=== PATIENT | female | born 1995 | race Caucasian/White ===

== ENCOUNTER 2016-09-18 08:30 | Outpatient (CLI) | payer OTHER ==
[~2016-09-18 08:30] MED LIST: ADDERALL XR15 MG PO; CIPRO500 MG PO; DEPAKOTE ER (E500 M1 PO; DUONEB 2.5-0.5 M3 ML IPPB; ESKALITH300 M1 PO; FIBER TABS625 MG PO; FLUOXETINE HCL20 MG PO; INTUNIV2 MG PO; JOLESSA1 EACH PO; KEFLEX500 MG PO; LACTAID1 TABLET PO; LITHIUM CARBON300 M1 PO; LITHIUM CARBON300 MG PO; LITHIUM CARBON600 MG PO; NITROFURANTOIN100 M3 PO; NYSTATIN15 GM TP; PEPCID AC20 MG PO; PRILOSEC40 MG PO; PROZAC20 M1 PO; ROCEPHIN1000 MG IV; SEROQUEL200 MG PO; TENEX1 M2 PO; TOVIAZ8 MG PO; ZOFRAN4 MG PO; [UNRECOGNIZED DRUG - OTHER] PO
[2016-09-18 08:50] VITALS: BP 120/77
[2016-09-18 10:09] LABS: ADD MIUA? YES; BILIRUBIN NEGATIVE; BLOOD SMALL; COLOR YELLOW ((YELLOW)); GLUCOSE (STRIP) NEGATIVE; KETONES NEGATIVE; LEUKOCYTES NEGATIVE; NITRITE NEGATIVE; PROTEIN (STRIP) NEGATIVE; SPECIFIC GRAVITY 1.012 (1.000-1.030); UROBILINOGEN 0.2 MG/DL (0.2-1.0)
[2016-09-18 10:14] LABS: BACTERIA NONE SEEN /HPF; BUDDING YEAST 1+; CALCIUM OXALATE CRYSTALS 1+ /HPF; EPITHELIAL CELLS RARE /HPF; GRANULAR CASTS 15-20 /LPF; MUCUS NONE SEEN /LPF; RED BLOOD CELLS 0-5 /HPF (0-5); UCUL ADDED? NO; WHITE BLOOD CELLS 0-5 /HPF (0-5)
[2016-09-18 10:34] LABS: AMPHETAMINE NEGATIVE (500 ng/mL); BARBITURATES NEGATIVE (200 ng/mL); BENZODIAZEPINES NEGATIVE (150 ng/mL); COCAINE NEGATIVE (150 ng/mL); METHADONE NEGATIVE (200 ng/mL); METHAMPHETAMINE NEGATIVE (500 ng/mL); OPIATES (MORPHINE) NEGATIVE (100 ng/mL); OXYCODONE NEGATIVE (100 ng/mL); PHENCYCLIDINE NEGATIVE (25 ng/mL); PROPOXYPHENE NEGATIVE (300 ng/mL); THC CANNABINOIDS NEGATIVE (50 ng/mL); TRICYCLIC ANTIDEPRESSANTS NEGATIVE (300 ng/mL)
[2016-09-18 10:35] LABS: INTERNAL CONTROLS VALID? YES
[2016-09-18 10:47] LABS: EOSINOPHIL (%) 0.7 % (0-5); EOSINOPHIL COUNT 0.1 K/uL (0-0.3); HEMATOCRIT 37.4 % (36.0-46.0); IMMATURE GRANULOCYTE (%) 1.2 % (0.0-0.7); IMMATURE GRANULOCYTE COUNT 0.1 K/uL; INSTRUMENT ABS NEUTROPHIL CT 4.9 K/uL; LYMPHOCYTE COUNT 1.7 K/uL (1.0-2.8); MCH 29.7 PG (29.0-34.0); MCHC 31.8 G/DL (30.0-36.0); MCV 93.3 FL (83-99); MEAN PLAT.VOLUME 11.8 uM^3 (9.5-12.4); MONOCYTE (%) 5.7 % (3-12); MONOCYTE COUNT 0.4 K/uL (0-0.8); NEUTROPHIL (%) 68.1 % (45-76); NEUTROPHIL COUNT 4.9 K/uL (1.8-6.4); PLATELET COUNT 132 K/uL (156-360); RBC DIS.WIDTH-CV 14.8 % (11.8-14.6); RBC DIS.WIDTH-SD 50.4 % (39-53); RED BLOOD COUNT 4.01 M/uL (3.80-5.20); WHITE BLOOD COUNT 7.2 K/uL (4.1-10.2)
[2016-09-18 11:11] LABS: Estimated Average Glucose 82 mg/dL (70-123); HEMOGLOBIN A1c (GLYCOHEMOGLOB) 4.5 % HGB (Below 5.7)
[2016-09-18 11:43] LABS: HBSG INDEX 0.23; HIV INDEX 0.08; HIV-1/2 AB/AG COMBO Nonreactive
[2016-09-18 13:05] LABS: TREPONEMA ANTIBODY NEGATIVE (NEGATIVE)
[2016-09-18 15:17] VITALS: BP 126/66
[2016-09-18 19:37] LABS: CANDIDA DNA PROBE NEGATIVE; GARDNERELLA DNA PROBE NEGATIVE; INTERNAL CONTROL VALID? YES
[2016-09-22 14:40] LABS: CHLAMYDIA TRACHOMATIS NEGATIVE; NEISSERIA GONORRHOEAE NEGATIVE
== END 2016-09-18 16:15 | disposition home or self-care (01) ==
LOC: LDRP-OP 08:30 → 2WEST 08:31
PROVIDERS: Advanced Practice Midwife; Obstetrics & Gynecology
DX: O46.92 Antepartum hemorrhage, unspecified, second trimester (principal); Z3A.28 28 weeks gestation of pregnancy; O09.32 Supervision of pregnancy with insufficient antenatal care, second trimester; O34.219 Maternal care for unspecified type scar from previous cesarean delivery
CPT/HCPCS: 59025; 76805; 81003; 83036; 85025; 86703; 86762; 86780; 86900; 86901; 87077; 87086; 87186; 87340; 87480; 87491; 87510; 87591; 87660; G0378

== ENCOUNTER 2016-10-01 08:54 | Outpatient (CLI) | payer OTHER ==
[~2016-10-01] VITALS: Ht 162.6 cm; Wt 73.0 kg
[2016-10-01 09:03] VITALS: BP 117/66
[2016-10-01] MEDS ORDERED: PRENATAL TABLE1 EAC3 PO (09:16)
[2016-10-01] MEDS ORDERED: ACYCLOVIR400 MG PO (09:16)
[2016-10-01] MEDS ORDERED: AMOXICILLIN500 M1 PO (09:17)
[2016-10-01 09:32] LABS: EOSINOPHIL (%) 0.8 % (0-5); EOSINOPHIL COUNT 0.1 K/uL (0-0.3); HEMATOCRIT 35.5 % (36.0-46.0); IMMATURE GRANULOCYTE (%) 1.5 % (0.0-0.7); IMMATURE GRANULOCYTE COUNT 0.1 K/uL; INSTRUMENT ABS NEUTROPHIL CT 5.1 K/uL; LYMPHOCYTE COUNT 1.9 K/uL (1.0-2.8); MCH 29.2 PG (29.0-34.0); MCHC 32.7 G/DL (30.0-36.0); MCV 89.4 FL (83-99); MEAN PLAT.VOLUME 12.7 uM^3 (9.5-12.4); MONOCYTE (%) 7.3 % (3-12); MONOCYTE COUNT 0.6 K/uL (0-0.8); NEUTROPHIL (%) 65.1 % (45-76); NEUTROPHIL COUNT 5.1 K/uL (1.8-6.4); PLATELET COUNT 104 K/uL (156-360); RBC DIS.WIDTH-CV 15.1 % (11.8-14.6); RBC DIS.WIDTH-SD 48.6 % (39-53); RED BLOOD COUNT 3.97 M/uL (3.80-5.20); WHITE BLOOD COUNT 7.8 K/uL (4.1-10.2)
[2016-10-01 11:15] LABS: PTT 28.5 (25-32)
[2016-10-01 11:17] LABS: ALKALINE PHOSPHATASE 108 IU/L (3-129); ANION GAP 9 MEQ/L (2-14); CHLORIDE 107 MEQ/L (99-109); GFR ESTIMATE (CALCULATED) > 59 mL/min/; GLUCOSE 83 mg/dL (70-99); POTASSIUM 3.2 MEQ/L (3.7-5.4); SAMPLE HEMOLYSIS CHECK 0; SAMPLE ICTERIC CHECK 0; SAMPLE LIPEMIA CHECK 0; SODIUM 139 MEQ/L (136-147); TOTAL BILIRUBIN 0.3 MG/DL (0.0-1.0); UREA NITROGEN (BUN) 7 mg/dL (9-23)
[2016-10-01 11:36] LABS: FIBRINOGEN 342 MG/DL (160-450)
[2016-10-01 11:42] VITALS: BP 128/68
[2016-10-01 12:05] LABS: HBSG INDEX 0.22; HPCA INDEX 0.15
[2016-10-01 12:06] LABS: ANTI-HEPATITIS A VIRUS (IGM) Nonreactive; HAV INDEX 0.17
[2016-10-01 12:07] LABS: ANTI-HEPATITIS B CORE (IGM) Nonreactive; HBC IgM INDEX 0.09
[2016-10-01 12:15] LABS: AMPHETAMINES QUANT VALUE 0 NG/ML; BARBITUATES QUANT VALUE 0 NG/ML; BENZODIAZEPINES QUANT VALUE 0 NG/ML; BENZODIAZEPINES, URINE SCREEN Negative (200 ng/mL); MARIJUANA QUANT VALUE 0 NG/ML; OPIATES QUANTITATIVE VALUE 0 NG/ML; PHENCYCLIDINE QUANT VALUE 0 NG/ML
[2016-10-03 12:58] LABS: CHLAMYDIA TRACHOMATIS NEGATIVE; NEISSERIA GONORRHOEAE NEGATIVE
== END 2016-10-01 14:50 | disposition short-term general hospital (02) ==
LOC: LDRP-OP 08:54 → 2WEST 08:55
PROVIDERS: Advanced Practice Midwife
DX: O46.93 Antepartum hemorrhage, unspecified, third trimester (principal); Z3A.30 30 weeks gestation of pregnancy; O21.2 Late vomiting of pregnancy; E87.6 Hypokalemia; R55 Syncope and collapse; O23.43 Unspecified infection of urinary tract in pregnancy, third trimester; B96.4 Proteus (mirabilis) (morganii) as the cause of diseases classified elsewhere; O98.313 Other infections with a predominantly sexual mode of transmission complicating pregnancy, third trimester; A60.00 Herpesviral infection of urogenital system, unspecified; K21.9 Gastro-esophageal reflux disease without esophagitis
CPT/HCPCS: 59025; 76805; 80053; 80074; 80306 90; 85025; 85384; 85460; 85610; 85730; 86870; 86900; 86901; 86905; 87081; 87491; 87591; 87653; 93005; G0378; J0696; J0702; J2405; J7050; J7120

== ENCOUNTER 2016-10-02 16:07 | Outpatient (CLI) | payer OTHER ==
[~2016-10-02 16:07] MED LIST changes: +ACYCLOVIR400 MG PO; +AMOXICILLIN500 M1 PO; +PRENATAL TABLE1 EAC3 PO
[2016-10-02 17:15] LABS: EOSINOPHIL (%) 0 % (0-5); HEMATOCRIT 35.6 % (36.0-46.0); IMMATURE GRANULOCYTE (%) 2.9 % (0.0-0.7); IMMATURE GRANULOCYTE COUNT 0.4 K/uL; INSTRUMENT ABS NEUTROPHIL CT 10.7 K/uL; MCH 29.2 PG (29.0-34.0); MCHC 32.6 G/DL (30.0-36.0); MCV 89.7 FL (83-99); MEAN PLAT.VOLUME 12.7 uM^3 (9.5-12.4); MONOCYTE (%) 1.9 % (3-12); MONOCYTE COUNT 0.2 K/uL (0-0.8); NEUTROPHIL (%) 87.1 % (45-76); NEUTROPHIL COUNT 10.7 K/uL (1.8-6.4); NRBC (%) 0.2 /100 WBC (0-0); PLATELET COUNT 128 K/uL (156-360); RBC DIS.WIDTH-CV 15.1 % (11.8-14.6); RBC DIS.WIDTH-SD 49.4 % (39-53); RED BLOOD COUNT 3.97 M/uL (3.80-5.20); WHITE BLOOD COUNT 12.2 K/uL (4.1-10.2)
[2016-10-02 18:53] VITALS: BP 110/59
[2016-10-02 20:51] LABS: CANDIDA DNA PROBE POSITIVE; GARDNERELLA DNA PROBE NEGATIVE; INTERNAL CONTROL VALID? YES
[2016-10-02 22:17] VITALS: BP 129/67
[2016-10-03 02:30] VITALS: BP 109/56
[2016-10-03 07:03] VITALS: BP 116/62
[2016-10-03 12:58] LABS: CHLAMYDIA TRACHOMATIS NEGATIVE; NEISSERIA GONORRHOEAE NEGATIVE
== END 2016-10-03 08:50 | disposition home or self-care (01) ==
LOC: LDRP-OP 16:07 → 2WEST 16:08 → LDRP-OP 01-08 15:51
PROVIDERS: Obstetrics & Gynecology Obstetrics
DX: O26.893 Other specified pregnancy related conditions, third trimester (principal); R10.9 Unspecified abdominal pain; O23.43 Unspecified infection of urinary tract in pregnancy, third trimester; O98.513 Other viral diseases complicating pregnancy, third trimester; B00.9 Herpesviral infection, unspecified; Z3A.30 30 weeks gestation of pregnancy
CPT/HCPCS: 59025; 76818; 82731; 85025; 86870; 86900; 86901; 86905; 86920; 87480; 87491; 87510; 87591; 87660; G0378; J7120

== ENCOUNTER 2016-10-04 17:15 | Emergency (ER) | payer OTHER ==
[~2016-10-04] VITALS: Ht 162.6 cm; Wt 68.7 kg
[2016-10-04 19:34] LABS: ADD MIUA? NO; BILIRUBIN NEGATIVE; BLOOD NEGATIVE; COLOR STRAW ((YELLOW)); GLUCOSE (STRIP) NEGATIVE; KETONES NEGATIVE; LEUKOCYTES NEGATIVE; NITRITE NEGATIVE; PROTEIN (STRIP) NEGATIVE; SPECIFIC GRAVITY 1.005 (1.000-1.030); UCUL ADDED? NO; UROBILINOGEN 0.2 MG/DL (0.2-1.0)
[2016-10-04 20:02] LABS: CHLORIDE 107 mEq/L (99-109); POTASSIUM 3.1 mEq/L (3.7-5.4); SODIUM 139 mEq/L (136-147)
[2016-10-04 20:04] LABS: GLUCOSE 93 mg/dL (70-99)
[2016-10-04 20:05] LABS: ANION GAP 9 MEQ/L (2-14)
[2016-10-04 20:08] LABS: GFR ESTIMATE (CALCULATED) > 59 mL/min/; UREA NITROGEN (BUN) 5 mg/dL (9-23)
[2016-10-04 20:10] LABS: HEMATOCRIT 32.5 % (36.0-46.0); MCH 29.3 PG (29.0-34.0); MCHC 32.3 G/DL (30.0-36.0); MCV 90.8 FL (83-99); NRBC (%) 0.2 /100 WBC (0-0); PLATELET COUNT 111 K/uL (156-360); RBC DIS.WIDTH-CV 15.4 % (11.8-14.6); RBC DIS.WIDTH-SD 50.4 % (39-53); RED BLOOD COUNT 3.58 M/uL (3.80-5.20); WHITE BLOOD COUNT 9.3 K/uL (4.1-10.2)
[2016-10-04 20:35] LABS: QUANTITATIVE HCG 33741.4 MIU/ML
[2016-10-04 23:04] VITALS: BP 127/88
== END 2016-10-04 23:06 | disposition left against medical advice (07) ==
LOC: EME → EDBD 17:15 → EME 17:15
PROVIDERS: Emergency Medicine
DX: O26.893 Other specified pregnancy related conditions, third trimester (principal); R10.9 Unspecified abdominal pain; Z3A.30 30 weeks gestation of pregnancy; O99.333 Smoking (tobacco) complicating pregnancy, third trimester
CPT/HCPCS: 76805; 80048; 81003; 84702; 85027; 99281; 99284; J7030

== ENCOUNTER 2016-10-07 17:22 | Outpatient (CLI) | payer OTHER ==
[2016-10-07 17:35] VITALS: BP 133/82
[2016-10-07 19:20] VITALS: BP 128/76
[2016-10-07 19:23] LABS: ADD MIUA? NO; BILIRUBIN NEGATIVE; BLOOD NEGATIVE; COLOR YELLOW ((YELLOW)); GLUCOSE (STRIP) NEGATIVE; KETONES NEGATIVE; LEUKOCYTES NEGATIVE; NITRITE NEGATIVE; PROTEIN (STRIP) NEGATIVE; SPECIFIC GRAVITY 1.008 (1.000-1.030); UCUL ADDED? NO; UROBILINOGEN 0.2 MG/DL (0.2-1.0)
[2016-10-07] MEDS ORDERED: PRILOSEC OTC20 MG PO (21:16)
== END 2016-10-07 21:30 | disposition home or self-care (01) ==
LOC: LDRP-OP → 2WEST 17:23 → LDRP-OP 01-08 09:06
PROVIDERS: Advanced Practice Midwife
DX: O26.893 Other specified pregnancy related conditions, third trimester (principal); O09.33 Supervision of pregnancy with insufficient antenatal care, third trimester; Z3A.31 31 weeks gestation of pregnancy
CPT/HCPCS: 59025; 76818; 81003; 87086; G0378

== ENCOUNTER 2016-10-21 07:09 | Outpatient (CLI) | payer OTHER ==
[~2016-10-21] VITALS: Ht 157.5 cm; Wt 71.2 kg
[~2016-10-21 07:09] MED LIST changes: +PRILOSEC OTC20 MG PO
[2016-10-21 07:10] VITALS: BP 125/74
[2016-10-21 10:47] VITALS: BP 105/67
== END 2016-10-21 12:20 | disposition home or self-care (01) ==
LOC: LDRP-OP 07:09 → 2WEST 07:10 → LDRP-OP 01-11 22:10
DX: O60.03 Preterm labor without delivery, third trimester (principal); Z3A.33 33 weeks gestation of pregnancy
CPT/HCPCS: 59025; 76818; 82731; G0378; J7120

== ENCOUNTER 2016-10-21 22:43 | Outpatient (CLI) | payer OTHER ==
[2016-10-21 23:15] VITALS: BP 121/77
== END 2016-10-22 00:05 | disposition home or self-care (01) ==
LOC: LDRP-OP 22:43 → 2WEST 22:44 → LDRP-OP 01-07 14:17
DX: O60.03 Preterm labor without delivery, third trimester (principal); Z3A.33 33 weeks gestation of pregnancy
CPT/HCPCS: 59025; G0378

== ENCOUNTER 2016-11-13 18:36 | Outpatient (CLI) | payer OTHER ==
[2016-11-13 19:01] VITALS: BP 130/77
[2016-11-13 20:50] VITALS: BP 128/74
[2016-11-13 22:42] LABS: CANDIDA DNA PROBE NEGATIVE; GARDNERELLA DNA PROBE NEGATIVE; INTERNAL CONTROL VALID? YES
== END 2016-11-14 00:33 | disposition home or self-care (01) ==
LOC: LDRP-OP 18:36 → 2WEST 18:38 → LDRP-OP 01-07 00:11
PROVIDERS: Advanced Practice Midwife
DX: O46.93 Antepartum hemorrhage, unspecified, third trimester (principal); Z3A.33 33 weeks gestation of pregnancy
CPT/HCPCS: 59025; 76818; 85049; 87077; 87081; 87186; 87480; 87510; 87660; G0378

== ENCOUNTER 2016-11-15 13:59 | Outpatient (CLI) | payer OTHER | END 2016-11-15 15:08 | disposition home or self-care (01) | LOC: LDRP-OP 13:59 → 2WEST 14:00 → LDRP-OP 01-07 01:40 | DX: O47.03 False labor before 37 completed weeks of gestation, third trimester (principal); Z3A.36 36 weeks gestation of pregnancy; O34.219 Maternal care for unspecified type scar from previous cesarean delivery | CPT/HCPCS: 59025; G0378 ==

== ENCOUNTER 2016-11-22 13:42 | Outpatient (CLI) | payer OTHER ==
[~2016-11-22] VITALS: Ht 162.6 cm; Wt 72.5 kg
[2016-11-22 14:00] VITALS: BP 128/83
== END 2016-11-22 14:40 | disposition home or self-care (01) ==
LOC: LDRP-OP 13:42 → 2WEST 13:43 → LDRP-OP 01-08 15:13
DX: O26.893 Other specified pregnancy related conditions, third trimester (principal); M54.5 Low back pain; Z3A.37 37 weeks gestation of pregnancy
CPT/HCPCS: 59025; G0378

== ENCOUNTER 2016-11-27 05:19 | Inpatient (IN) | payer OTHER ==
[2016-11-27] VITALS (8 sets, daily range): BP systolic 119–149; BP diastolic 71–93
[~2016-11-27] VITALS: Ht 162.6 cm; Wt 74.0 kg
[2016-11-27 06:45] LABS: EOSINOPHIL (%) 0 % (0-5); HEMATOCRIT 42.1 % (36.0-46.0); IMMATURE GRANULOCYTE (%) 0.8 % (0.0-0.7); IMMATURE GRANULOCYTE COUNT 0.1 K/uL; INSTRUMENT ABS NEUTROPHIL CT 12.5 K/uL; LYMPHOCYTE COUNT 1.3 K/uL (1.0-2.8); MCH 29.2 PG (29.0-34.0); MCHC 33.5 G/DL (30.0-36.0); MCV 87.2 FL (83-99); MONOCYTE (%) 2.6 % (3-12); MONOCYTE COUNT 0.4 K/uL (0-0.8); NEUTROPHIL (%) 87.1 % (45-76); NEUTROPHIL COUNT 12.5 K/uL (1.8-6.4); PLATELET COUNT 139 K/uL (156-360); RBC DIS.WIDTH-CV 17.3 % (11.8-14.6); RBC DIS.WIDTH-SD 54.3 % (39-53); RED BLOOD COUNT 4.83 M/uL (3.80-5.20); WHITE BLOOD COUNT 14.3 K/uL (4.1-10.2)
[2016-11-27 07:03] LABS: ALKALINE PHOSPHATASE 168 IU/L (3-129); ANION GAP 11 MEQ/L (2-14); CHLORIDE 107 MEQ/L (99-109); GFR ESTIMATE (CALCULATED) > 59 mL/min/; GLUCOSE 97 mg/dL (70-99); LACTATE DEHYDROGENASE 223 IU/L (20-246); POTASSIUM 4.1 MEQ/L (3.7-5.4); SAMPLE HEMOLYSIS CHECK 0; SAMPLE ICTERIC CHECK 0; SAMPLE LIPEMIA CHECK 0; SODIUM 139 MEQ/L (136-147); TOTAL BILIRUBIN 0.3 MG/DL (0.0-1.0); UREA NITROGEN (BUN) 12 mg/dL (9-23); URIC ACID 6.4 mg/dL (3.1-9.2)
[2016-11-27 07:40] LABS: AMPHETAMINE NEGATIVE (500 ng/mL); BARBITURATES NEGATIVE (200 ng/mL); BENZODIAZEPINES NEGATIVE (150 ng/mL); COCAINE NEGATIVE (150 ng/mL); INTERNAL CONTROLS VALID? YES; METHADONE NEGATIVE (200 ng/mL); METHAMPHETAMINE NEGATIVE (500 ng/mL); OPIATES (MORPHINE) NEGATIVE (100 ng/mL); OXYCODONE NEGATIVE (100 ng/mL); PHENCYCLIDINE NEGATIVE (25 ng/mL); PROPOXYPHENE NEGATIVE (300 ng/mL); THC CANNABINOIDS NEGATIVE (50 ng/mL); TRICYCLIC ANTIDEPRESSANTS NEGATIVE (300 ng/mL)
[2016-11-27 07:42] LABS: UR CREATININE CONCENTRATION 115.1 MG/DL
[2016-11-28 06:36] LABS: EOSINOPHIL (%) 0.4 % (0-5); HEMATOCRIT 36.4 % (36.0-46.0); IMMATURE GRANULOCYTE (%) 0.5 % (0.0-0.7); INSTRUMENT ABS NEUTROPHIL CT 5.1 K/uL; LYMPHOCYTE COUNT 2.5 K/uL (1.0-2.8); MCH 28.3 PG (29.0-34.0); MCHC 32.1 G/DL (30.0-36.0); MCV 88.1 FL (83-99); MONOCYTE (%) 5.6 % (3-12); MONOCYTE COUNT 0.5 K/uL (0-0.8); NEUTROPHIL (%) 62.6 % (45-76); NEUTROPHIL COUNT 5.1 K/uL (1.8-6.4); PLATELET COUNT 103 K/uL (156-360); RBC DIS.WIDTH-CV 17.2 % (11.8-14.6); RBC DIS.WIDTH-SD 55.5 % (39-53); RED BLOOD COUNT 4.13 M/uL (3.80-5.20); WHITE BLOOD COUNT 8.2 K/uL (4.1-10.2)
[2016-11-28 07:32] VITALS: BP 134/77
[2016-11-28 11:09] VITALS: BP 134/80
[2016-11-28 19:30] VITALS: BP 135/84
[2016-11-28 22:47] VITALS: BP 134/90
[2016-11-29 03:11] VITALS: BP 134/83
[2016-11-29 08:16] VITALS: BP 142/85
[2016-11-29] MEDS ORDERED: IBUPROFEN800 MG PO (09:50)
[2016-11-29] MEDS ORDERED: ENDOCET 5-3251 EACH PO (09:50)
[2016-11-29 11:29] VITALS: BP 132/87
[2016-11-29 13:30] VITALS: BP 132/87
== END 2016-11-29 15:14 | disposition home or self-care (01) | DRG 765 ==
LOC: LDRP-OP 05:19 → 2WEST 05:20 → LDRP-OP 01-08 22:34
PROVIDERS: Advanced Practice Midwife; Obstetrics & Gynecology
PROC: 10D00Z1 Extraction of Products of Conception, Low, Open Approach (ICD-10-PCS; principal; 2016-11-27)
DX: O34.219 Maternal care for unspecified type scar from previous cesarean delivery (principal); D69.59 Other secondary thrombocytopenia; O98.32 Other infections with a predominantly sexual mode of transmission complicating childbirth; D69.6 Thrombocytopenia, unspecified; O99.12 Other diseases of the blood and blood-forming organs and certain disorders involving the immune mechanism complicating childbirth; O14.04 Mild to moderate pre-eclampsia, complicating childbirth; O13.4 Gestational [pregnancy-induced] hypertension without significant proteinuria, complicating childbirth; O69.81X0 Labor and delivery complicated by cord around neck, without compression, not applicable or unspecified; O99.824 Streptococcus B carrier state complicating childbirth; O69.89X0 Labor and delivery complicated by other cord complications, not applicable or unspecified; A60.00 Herpesviral infection of urogenital system, unspecified; O36.0930 Maternal care for other rhesus isoimmunization, third trimester, not applicable or unspecified; O99.344 Other mental disorders complicating childbirth; Z3A.38 38 weeks gestation of pregnancy; Z37.0 Single live birth; F31.9 Bipolar disorder, unspecified; E66.3 Overweight
CPT/HCPCS: 80053; 82570; 83615; 84156; 84550; 85025; 86870; 86900; 86901; 86905; 86920; 88307; J0690; J1200; J2270; J2274; J2300; J2405; J7120

== ENCOUNTER 2017-04-06 15:54 | Emergency (ER) | payer OTHER ==
[~2017-04-06] VITALS: Ht 165.1 cm; Wt 61.2 kg
[~2017-04-06 15:54] MED LIST changes: +ENDOCET 5-3251 EACH PO; +IBUPROFEN800 MG PO
[2017-04-06 16:21] LABS: ADD MIUA? YES; BILIRUBIN NEGATIVE; BLOOD SMALL; COLOR YELLOW ((YELLOW)); GLUCOSE (STRIP) NEGATIVE; KETONES NEGATIVE; LEUKOCYTES LARGE; NITRITE NEGATIVE; PROTEIN (STRIP) 30; SPECIFIC GRAVITY 1.018 (1.000-1.030)
[2017-04-06 16:26] LABS: INTERNAL CONTROL VALID? YES
[2017-04-06 16:44] LABS: BACTERIA 3+ /HPF; CASTS NONE SEEN /LPF; CRYSTALS NONE SEEN; EPITHELIAL CELLS 2+ /HPF; MUCUS NONE SEEN /LPF; RED BLOOD CELLS 0-5 /HPF (0-5); UCUL ADDED? YES
[2017-04-06] MEDS ORDERED: PYRIDIUM100 MG PO (19:57)
[2017-04-06] MEDS ORDERED: MACROBID100 MG PO (19:57)
[2017-04-06 20:20] VITALS: BP 139/58
== END 2017-04-06 20:22 | disposition home or self-care (01) ==
LOC: EME 15:54
PROVIDERS: Nurse Practitioner Family
DX: N39.0 Urinary tract infection, site not specified (principal); Z87.440 Personal history of urinary (tract) infections; F31.9 Bipolar disorder, unspecified; F32.9 Major depressive disorder, single episode, unspecified; F90.9 Attention-deficit hyperactivity disorder, unspecified type; F17.200 Nicotine dependence, unspecified, uncomplicated; Z88.8 Allergy status to other drugs, medicaments and biological substances
CPT/HCPCS: 74176; 81003; 84703; 87077; 87086; 87186; 99281; 99285

== ENCOUNTER 2017-04-07 16:35 | Emergency (ER) | payer OTHER ==
[~2017-04-07] VITALS: Ht 162.6 cm; Wt 60.6 kg
[~2017-04-07 16:35] MED LIST changes: +MACROBID100 MG PO; +PYRIDIUM100 MG PO
[2017-04-07 18:39] LABS: HEMATOCRIT 39.3 % (36.0-46.0); MCH 29.5 PG (29.0-34.0); MCHC 34.1 G/DL (30.0-36.0); MCV 86.4 FL (83-99); MEAN PLAT.VOLUME 11.8 uM^3 (9.5-12.4); PLATELET COUNT 163 K/uL (156-360); RBC DIS.WIDTH-CV 13.4 % (11.8-14.6); RBC DIS.WIDTH-SD 42.1 % (39-53); RED BLOOD COUNT 4.55 M/uL (3.80-5.20); WHITE BLOOD COUNT 5.7 K/uL (4.1-10.2)
[2017-04-07 19:00] LABS: CHLORIDE 110 mEq/L (99-109); POTASSIUM 3.9 mEq/L (3.7-5.4); SODIUM 140 mEq/L (136-147)
[2017-04-07 19:03] LABS: GLUCOSE 97 mg/dL (70-99)
[2017-04-07 19:04] LABS: ANION GAP 11 MEQ/L (2-14); TOTAL BILIRUBIN 0.5 mg/dL (0.0-1.0)
[2017-04-07 19:06] LABS: ALKALINE PHOSPHATASE 101 IU/L (3-129); GFR ESTIMATE (CALCULATED) > 59 mL/min/; SERUM ETHYL ALCOHOL < 10 mg/dL
[2017-04-07 19:07] LABS: UREA NITROGEN (BUN) 11 mg/dL (9-23)
[2017-04-07 20:24] VITALS: BP 131/63
== END 2017-04-07 20:37 | disposition home or self-care (01) ==
LOC: EME 16:35
PROVIDERS: Emergency Medicine
DX: F33.0 Major depressive disorder, recurrent, mild (principal); F60.3 Borderline personality disorder; Z91.5 Personal history of self-harm; F31.9 Bipolar disorder, unspecified; F90.9 Attention-deficit hyperactivity disorder, unspecified type; Z59.0 Homelessness; Z87.440 Personal history of urinary (tract) infections; F17.200 Nicotine dependence, unspecified, uncomplicated; Z88.8 Allergy status to other drugs, medicaments and biological substances
CPT/HCPCS: 80053; 81003; 84703; 85027; 90839; 99281; 99285; G0480

== ENCOUNTER 2017-04-22 19:33 | Emergency (ER) | payer OTHER ==
[~2017-04-22] VITALS: Ht 157.5 cm; Wt 61.0 kg
[2017-04-22 20:19] LABS: HEMATOCRIT 39.4 % (36.0-46.0); HEMOGLOBIN 13.6 G/DL (11.9-15.5); MCH 30.1 PG (29.0-34.0); MCHC 34.5 G/DL (30.0-36.0); MCV 87.2 FL (83-99); PLATELET COUNT 193 K/uL (156-360); RBC DIS.WIDTH-CV 13.7 % (11.8-14.6); RED BLOOD COUNT 4.52 M/uL (3.80-5.20); WHITE BLOOD COUNT 5.4 K/uL (4.1-10.2)
[2017-04-22 20:27] LABS: ALBUMIN 4.1 g/dL (3.2-4.8)
[2017-04-22 20:28] LABS: CHLORIDE 108 mEq/L (99-109); POTASSIUM 3.5 mEq/L (3.7-5.4); SODIUM 141 mEq/L (136-147)
[2017-04-22 20:30] LABS: GLUCOSE 94 mg/dL (70-99); TOTAL PROTEIN 7.4 g/dL (6.4-8.3)
[2017-04-22 20:32] LABS: TOTAL BILIRUBIN 0.4 mg/dL (0.0-1.0)
[2017-04-22 20:33] LABS: ALKALINE PHOSPHATASE 101 IU/L (3-129)
[2017-04-22 20:34] LABS: CREATININE 0.8 mg/dL (0.6-1.3); GFR ESTIMATE (CALCULATED) > 59 mL/min/
[2017-04-22 20:35] LABS: AST (GOT) 17 IU/L (2-34); UREA NITROGEN (BUN) 16 mg/dL (9-23)
[2017-04-22 20:37] LABS: ALT (GPT) 12 IU/L (3-49)
[2017-04-22 20:42] LABS: QUANTITATIVE HCG < 4.0 MIU/ML
[2017-04-22 21:01] LABS: APPEARANCE SL.HAZY ((CLEAR)); BILIRUBIN NEGATIVE; BLOOD NEGATIVE; COLOR YELLOW ((YELLOW)); GLUCOSE (STRIP) NEGATIVE; KETONES NEGATIVE; LEUKOCYTES TRACE; NITRITE NEGATIVE; PROTEIN (STRIP) 30; SPECIFIC GRAVITY 1.028 (1.000-1.030)
[2017-04-22 21:06] LABS: BACTERIA RARE /HPF; EPITHELIAL CELLS 1+ /HPF; MUCUS 2+ /LPF; RED BLOOD CELLS 0-5 /HPF (0-5); UCUL ADDED? NO; WHITE BLOOD CELLS 0-5 /HPF (0-5)
[2017-04-22 21:42] VITALS: BP 100/75
== END 2017-04-22 21:46 | disposition home or self-care (01) ==
LOC: EME 19:33
DX: R10.30 Lower abdominal pain, unspecified (principal); F32.9 Major depressive disorder, single episode, unspecified; F90.9 Attention-deficit hyperactivity disorder, unspecified type; F17.200 Nicotine dependence, unspecified, uncomplicated; Z88.8 Allergy status to other drugs, medicaments and biological substances
CPT/HCPCS: 80053; 81003; 84702; 85027; 99281; 99284

== ENCOUNTER 2017-05-22 18:59 | Emergency (ER) | payer OTHER ==
[~2017-05-22] VITALS: Ht 160 cm; Wt 62.8 kg
[2017-05-22 20:56] LABS: APPEARANCE SL.HAZY ((CLEAR)); BILIRUBIN NEGATIVE; BLOOD NEGATIVE; COLOR YELLOW ((YELLOW)); GLUCOSE (STRIP) NEGATIVE; KETONES NEGATIVE; LEUKOCYTES MODERATE; NITRITE NEGATIVE; PROTEIN (STRIP) 30; SPECIFIC GRAVITY 1.026 (1.000-1.030)
[2017-05-22 21:01] LABS: HEMOGLOBIN 13.4 G/DL (11.9-15.5); MCH 30.2 PG (29.0-34.0); MCHC 34.4 G/DL (30.0-36.0); MCV 87.8 FL (83-99); PLATELET COUNT 160 K/uL (156-360); RBC DIS.WIDTH-CV 13.5 % (11.8-14.6); RBC DIS.WIDTH-SD 43.3 % (39-53); RED BLOOD COUNT 4.44 M/uL (3.80-5.20); WHITE BLOOD COUNT 5.8 K/uL (4.1-10.2)
[2017-05-22 21:08] LABS: BACTERIA RARE /HPF; EPITHELIAL CELLS 2+ /HPF; MUCUS 1+ /LPF; UCUL ADDED? YES
[2017-05-22 21:13] LABS: ALBUMIN 4.2 g/dL (3.2-4.8)
[2017-05-22 21:14] LABS: CHLORIDE 107 mEq/L (99-109); POTASSIUM 3.7 mEq/L (3.7-5.4); SODIUM 140 mEq/L (136-147)
[2017-05-22 21:16] LABS: GLUCOSE 89 mg/dL (70-99); TOTAL PROTEIN 7.2 g/dL (6.4-8.3)
[2017-05-22 21:18] LABS: TOTAL BILIRUBIN 0.4 mg/dL (0.0-1.0)
[2017-05-22 21:19] LABS: ALKALINE PHOSPHATASE 104 IU/L (3-129)
[2017-05-22 21:20] LABS: CREATININE 0.8 mg/dL (0.6-1.3); GFR ESTIMATE (CALCULATED) > 59 mL/min/
[2017-05-22 21:21] LABS: AST (GOT) 14 IU/L (2-34); UREA NITROGEN (BUN) 14 mg/dL (9-23)
[2017-05-22 21:23] LABS: ALT (GPT) 10 IU/L (3-49); LIPASE 27 U/L (1.0-51.0)
[2017-05-22 21:33] LABS: QUANTITATIVE HCG < 4.0 MIU/ML
[2017-05-22] MEDS ORDERED: MOTRIN600 MG PO (22:29)
[2017-05-22] MEDS ORDERED: ZOFRAN ODT4 MG PO (22:29)
[2017-05-22] MEDS ORDERED: CIPRO500 MG PO (22:29)
[2017-05-22 23:24] VITALS: BP 101/50
== END 2017-05-22 23:25 | disposition home or self-care (01) ==
LOC: EME 18:59
DX: N39.0 Urinary tract infection, site not specified (principal); R11.2 Nausea with vomiting, unspecified; F31.9 Bipolar disorder, unspecified; F32.9 Major depressive disorder, single episode, unspecified; F90.9 Attention-deficit hyperactivity disorder, unspecified type; F17.200 Nicotine dependence, unspecified, uncomplicated; Z88.8 Allergy status to other drugs, medicaments and biological substances
CPT/HCPCS: 80053; 81003; 83690; 84702; 85027; 87086; 99281; 99284

== ENCOUNTER 2017-06-12 11:30 | Emergency (ER) | payer OTHER ==
[~2017-06-12] VITALS: Ht 162.6 cm; Wt 61.0 kg
[~2017-06-12 11:30] MED LIST changes: +MOTRIN600 MG PO; +ZOFRAN ODT4 MG PO
[2017-06-12] MEDS ORDERED: PRENATAL TABLE1 EAC3 PO (13:05)
[2017-06-12 13:31] LABS: APPEARANCE SL.HAZY ((CLEAR)); BILIRUBIN NEGATIVE; BLOOD LARGE; COLOR YELLOW ((YELLOW)); GLUCOSE (STRIP) NEGATIVE; KETONES NEGATIVE; LEUKOCYTES TRACE; NITRITE NEGATIVE; PROTEIN (STRIP) NEGATIVE; SPECIFIC GRAVITY 1.017 (1.000-1.030); UROBILINOGEN 0.2 MG/DL (0.2-1.0)
[2017-06-12 13:40] LABS: BACTERIA RARE /HPF; EPITHELIAL CELLS 1+ /HPF; MUCUS TRACE /LPF; RED BLOOD CELLS 0-5 /HPF (0-5); UCUL ADDED? NO; WHITE BLOOD CELLS 0-5 /HPF (0-5)
[2017-06-12 13:44] LABS: HEMATOCRIT 38.6 % (36.0-46.0); HEMOGLOBIN 13.3 G/DL (11.9-15.5); MCH 29.6 PG (29.0-34.0); MCHC 34.5 G/DL (30.0-36.0); MCV 85.8 FL (83-99); PLATELET COUNT 146 K/uL (156-360); RBC DIS.WIDTH-CV 12.7 % (11.8-14.6); RBC DIS.WIDTH-SD 39.8 % (39-53)
[2017-06-12 13:52] LABS: ALBUMIN 4.3 g/dL (3.2-4.8)
[2017-06-12 13:53] LABS: CHLORIDE 106 mEq/L (99-109); SODIUM 140 mEq/L (136-147)
[2017-06-12 13:55] LABS: GLUCOSE 91 mg/dL (70-99); TOTAL PROTEIN 7.3 g/dL (6.4-8.3)
[2017-06-12 13:57] LABS: TOTAL BILIRUBIN 0.5 mg/dL (0.0-1.0)
[2017-06-12 13:58] LABS: ALKALINE PHOSPHATASE 87 IU/L (3-129)
[2017-06-12 13:59] LABS: CREATININE 0.8 mg/dL (0.6-1.3); GFR ESTIMATE (CALCULATED) > 59 mL/min/
[2017-06-12 14:00] LABS: AST (GOT) 15 IU/L (2-34); UREA NITROGEN (BUN) 12 mg/dL (9-23)
[2017-06-12 14:01] LABS: ALT (GPT) 8 IU/L (3-49)
[2017-06-12 14:10] LABS: QUANTITATIVE HCG < 4.0 MIU/ML
[2017-06-12 14:28] VITALS: BP 136/80
== END 2017-06-12 14:28 | disposition home or self-care (01) ==
LOC: EME 11:30
PROVIDERS: Physician Assistant Medical
DX: N93.9 Abnormal uterine and vaginal bleeding, unspecified (principal); F32.9 Major depressive disorder, single episode, unspecified; F90.9 Attention-deficit hyperactivity disorder, unspecified type; F17.200 Nicotine dependence, unspecified, uncomplicated; Z88.8 Allergy status to other drugs, medicaments and biological substances
CPT/HCPCS: 80053; 81003; 84702; 85027; 99281; 99283

== ENCOUNTER 2017-09-10 12:41 | Inpatient (IN) | payer OTHER ==
[~2017-09-10] VITALS: Ht 160 cm; Wt 59.4 kg
[2017-09-10 15:02] LABS: HEMATOCRIT 38.3 % (36.0-46.0); HEMOGLOBIN 13.6 G/DL (11.9-15.5); MCH 30.7 PG (29.0-34.0); MCHC 35.5 G/DL (30.0-36.0); MCV 86.5 FL (83-99); PLATELET COUNT 153 K/uL (156-360); RBC DIS.WIDTH-CV 13.4 % (11.8-14.6); RBC DIS.WIDTH-SD 41.9 % (39-53); RED BLOOD COUNT 4.43 M/uL (3.80-5.20); WHITE BLOOD COUNT 5.7 K/uL (4.1-10.2)
[2017-09-10 15:06] LABS: AMPHETAMINE NEGATIVE (500 ng/mL); BARBITURATES NEGATIVE (200 ng/mL); BENZODIAZEPINES NEGATIVE (150 ng/mL); BUPRENORPHINE NEGATIVE (10 ng/mL); COCAINE NEGATIVE (150 ng/mL); METHADONE NEGATIVE (200 ng/mL); METHAMPHETAMINE NEGATIVE (500 ng/mL); OPIATES (MORPHINE) NEGATIVE (100 ng/mL); OXYCODONE NEGATIVE (100 ng/mL); PHENCYCLIDINE NEGATIVE (25 ng/mL); PROPOXYPHENE NEGATIVE (300 ng/mL); THC CANNABINOIDS NEGATIVE (50 ng/mL); TRICYCLIC ANTIDEPRESSANTS NEGATIVE (300 ng/mL)
[2017-09-10 15:17] LABS: CHLORIDE 106 mEq/L (99-109); POTASSIUM 3.9 mEq/L (3.7-5.4); SODIUM 141 mEq/L (136-147)
[2017-09-10 15:19] LABS: GLUCOSE 79 mg/dL (70-99)
[2017-09-10 15:22] LABS: SERUM ETHYL ALCOHOL < 10 mg/dL
[2017-09-10 15:23] LABS: CREATININE 0.8 mg/dL (0.6-1.3); GFR ESTIMATE (CALCULATED) > 59 mL/min/
[2017-09-10 15:25] LABS: UREA NITROGEN (BUN) 11 mg/dL (9-23)
[2017-09-10 15:26] LABS: SALICYLATE < 5.0 MG/DL (15-30)
[2017-09-10 15:27] LABS: ACETAMINOPHEN (TYLENOL) < 10 mcg/mL (10-30)
[2017-09-10 16:16] LABS: APPEARANCE CLOUDY ((CLEAR)); BILIRUBIN NEGATIVE; BLOOD NEGATIVE; COLOR YELLOW ((YELLOW)); GLUCOSE (STRIP) NEGATIVE; KETONES NEGATIVE; LEUKOCYTES SMALL; NITRITE POSITIVE; PROTEIN (STRIP) 30
[2017-09-10 16:22] LABS: BACTERIA RARE /HPF; EPITHELIAL CELLS 1+ /HPF; MUCUS TRACE /LPF; RED BLOOD CELLS 0-5 /HPF (0-5); UCUL ADDED? YES; WHITE BLOOD CELLS 20-30 /HPF (0-5)
[2017-09-10 16:55] VITALS: BP 116/61
[2017-09-10] MEDS ORDERED: ACYCLOVIR400 MG PO (17:09)
[2017-09-11 09:11] VITALS: BP 109/55
[2017-09-11 16:27] VITALS: BP 133/79
[2017-09-12 07:46] VITALS: BP 104/53
[2017-09-12 15:16] VITALS: BP 118/71
[2017-09-13 07:39] VITALS: BP 126/61
[2017-09-13 15:43] VITALS: BP 133/63
[2017-09-14 08:03] VITALS: BP 108/57
[2017-09-14] MEDS ORDERED: BUPROPION XL150 MG PO (09:50)
[2017-09-14] MEDS ORDERED: LITHIUM CARBON300 MG PO (09:50)
[2017-09-14] MEDS ORDERED: QUETIAPINE FUM100 MG PO (09:50)
[2017-09-14] MEDS ORDERED: NICODERM CQ1 EAC2 TD (09:54)
== END 2017-09-14 10:56 | disposition home or self-care (01) | DRG 885 ==
LOC: EME 12:41 → EDOF 15:27 → ENRESERV 16:07 → 1WEST 16:39
PROVIDERS: Emergency Medicine
DX: F33.1 Major depressive disorder, recurrent, moderate (principal); R45.851 Suicidal ideations; F60.3 Borderline personality disorder; N39.0 Urinary tract infection, site not specified; F90.9 Attention-deficit hyperactivity disorder, unspecified type; F17.200 Nicotine dependence, unspecified, uncomplicated; Z91.14 Patient's other noncompliance with medication regimen; Z91.410 Personal history of adult physical and sexual abuse; Z56.0 Unemployment, unspecified
CPT/HCPCS: 80048; 81003; 85027; 87077; 87086; 87186; 90839; 97150 GO; 97165 GO; 99281; 99285; G0480